=== PATIENT | female | born 1995 | race Caucasian/White ===

== ENCOUNTER 2021-04-08 08:16 | Emergency (ER) | payer BC, SELFPAY ==
[2021-04-08] VITALS (15 sets, daily range): BP systolic 99–121; BP diastolic 54–75; PULSE 63–81; RESP 8–18; TEMP 36.9; O2SAT 90–100
--- NOTE | ~2021-04-08 | XR_ITS ---
EXAMINATION: XR chest 2V DATE: 04/08/2021 09:09 INDICATION: Blurry vision and dizziness TECHNIQUE: PA and lateral views of the chest are obtained. COMPARISON: None available FINDINGS: The lungs are free of acute opacities. There is no pleural effusion or pneumothorax. The ca rdiomediastinal silhouette is normal. The visualized bones and soft tissues are unremarkable. IMPRESSION: 1. No acute cardiopulmonary abnormality. Reviewed, dictated and finalized at location B. ERY CASHIER
--- NOTE | 2021-04-08 08:36 | ECG_ITS ---
Measurements Intervals [place] Rate: 73 P: 14 AK: 112 QRS: 75 QRSD: 85 T: 15 QT: 389 QTc: 430 Interpretive Statements SINUS RHYTHM WITH SHORT AK INTERVAL BORDERLINE ECG Electronically Signed On 04-08-2021 9:05:38 [employer] by Fam Lockhart D.O.
[2021-04-08] MEDS: ONDANSETRON INJ 4 MG/2 ML VIAL IV PUSH (09:02)
[2021-04-08] MEDS: LACTATED RINGERS 1,000 ML 999 ML IV CONT (09:04)
[2021-04-08 09:05] LABS: Alanine Aminotransferase 46 U/L (4-35); Albumin Level 4.8 g/dL (3.5-5.1); Alkaline Phosphatase 55 U/L (38-126); Anion Gap 9 mmol/L (8-16); Aspartate Amino Transferase 28 U/L (14-36); Bilirubin,Total 0.6 mg/dL (0.2-1.3); Blood Urea Nitrogen 11 mg/dL (7-17); Calcium 9.8 mg/dL (8.4-10.2); Carbon Dioxide 26 mmol/L (22-30); Chloride 105 mmol/L (98-107); Estimated CRCL calculation 100 ml/min; Estimated Glomerular Filt Rate > 60; Glucose 115 mg/dL (65-110); Lipase 129 U/L (23-300); Potassium 3.5 mmol/L (3.4-5.0); Sodium 140 mmol/L (137-145)
[2021-04-08 09:08] LABS: Basophils Absolute Auto 0.1 K/mm3 (0.0-0.1); Basophils Percent Auto 1.1 % (0.2-1.2); Eosinophils Absolute Auto 0.1 K/mm3 (0-0.3); Eosinophils Percent Auto 2.5 % (0-4.4); Hematocrit 41.6 % (37.0-47.0); Hemoglobin 13.5 g/dL (12.0-15.0); Immature Granulocyte Absolute 0.02 K/mm3 (0.00-0.031); Immature Granulocyte Percent A 0.4 % (0-0.5); Lymphocytes Percent Auto 28.6 % (18.3-44.2); Mean Corpuscular HGB Conc 32.5 g/dl (32-36); Mean Corpuscular Hemoglobin 30.4 pg (26-34); Mean Corpuscular Volume 93.7 fl (80-100); Mean Platelet Volume 10.7 fl (7.4-10.4); Monocytes Absolute Auto 0.5 K/mm3 (0.1-0.6); Neutrophils Absolute Auto 3.1 K/mm3 (1.3-6.7); Neutrophils Percent Auto 58.4 % (45.5-73.1); Platelet Count Result 257 k/mm3 (150-375); Red Blood Count 4.44 M/mm3 (4.2-5.4); Red Cell Distribution Width 12.3 % (11.5-14.5); White Blood Count 5.3 K/mm3 (4.5-10.0)
[2021-04-08 09:11] LABS: D Dimer 0.33 ug/mL (<0.48)
--- NOTE | 2021-04-08 09:14 | ED.DIZZY ---
HPI - Dizziness General Chief Complaint: Syncope Stated Complaint: NEAR SYNCOPAL EVENT Time Seen by Provider: 04/08/21 08:28 Source: patient and RN notes reviewed Mode of arrival: wheelchair Limitations: no limitations History of Present Illness HPI Narrative: This is a 25 year old female with history of tachycardia and mitral valve prolapse who presents for evaluation of dizziness. Patient reports this morning she was standing in clinicals when she became lightheaded, flushed and nauseous. She sat down and she was given some crackers and juice. She felt better so she continued her clinicals. She reports having another episode while she was standing around for a c section. Her vision went blurred , became nauseous and became lightheaded again. She denies associated chest pain, shortness of breath. She states she also woke up this morning feeling nauseated with abdominal discomfort. She had not eaten breakfast this morning. She reports history of near syncopal episodes, and she was told it was due to mitral valve prolapse. She was started on metoprolol 1-2 weeks for tachycardia and mitral valve prolapse. She is still waiting on cardiac evaluation. She is currently taking metoprolol 25 mg daily. Related Data Allergies Allergy/AdvReac Type Severity Reaction Status Date / Time lidocaine Allergy Unknown Verified 04/08/21 09:01 Review of Systems Review of Systems: All systems reviewed & are unremarkable except as noted in HPI and below Constitutional: Constitutional: Denies chills, Denies fatigue and Denies fever(s) Cardiovascular: Cardiovascular: Denies chest pain Respiratory: Respiratory: Denies cough and Denies dyspnea Gastrointestinal: Gastrointestinal: Reports abdominal pain, Denies diarrhea, Reports nausea and Denies vomiting Neurologic: Denies headache(s), Denies focal weakness and Denies numbness PMFSH Past Medical History Medical History (Updated 04/08/21 @ 16:50 by Ivis Finley MD) Mitral valve prolapse Tachycardia Surgical History Surgical History (Updated 04/08/21 @ 16:51 by Ivis Finley MD) No pertinent past surgical history Social History Social History (Updated 04/08/21 @ 16:51 by Ivis Finley MD) Smoking status: Never smoker Alcohol intake: never Substance use: never Exam Narrative: GENERAL: Well-appearing, well-nourished, and in no acute distress. HEAD: Normocephalic, atraumatic EYES: PERRLA and EOMI, conjunctiva clear without discharge EARS: TM's clear bilaterally without erythema or dullness NOSE: Nares clear, no rhinorrhea or epistaxis THROAT:Mucous membranes moist, Oropharynx normal without erythema, exudate, peritonsillar swelling or fluctuance NECK: Supple, without lymphadenopathy or mass RESPIRATORY: No respiratory distress, Airway patent, Respirations non-labored, Clear to auscultation without rales, rhonchi or wheeze HEART: Regular rate and rhythm. No murmur heard. Normal peripheral pulses. ABDOMEN: Soft, nontender, nondistended, normal active bowel sounds. No masses. No rebound or guarding, No organomegaly. EXTREMITIES: No edema, normal strength with full range of motion. SKIN: Warm, dry, normal color without rash NEURO: Alert and oriented x3. CN 2-12 grossly intact. No focal deficits. PSYCH: Normal mood and affect. Course Reevaluation(s) Reevaluation #1: PAtient was given IVF. She has been able to ambulate with steady gait. She denies any complaints. Currently. I discussed evaluation has been unremarkable in ER other than a UTI. She has follow up appointment with PCP when she leaves today to discuss if she should continue metoprolol or change dose. Date: 04/08/21 Time: 11:26 Vital Signs Vital signs: Vital Signs Respiratory Rate 14 04/08/21 08:29 Pulse Oximetry 90 04/08/21 08:29 Temperature 98.4 F 04/08/21 09:30 Pulse Rate 75 04/08/21 11:44 Respiratory Rate 18 04/08/21 11:44 Blood Pressure 109/63 04/08/21
[2021-04-08 09:41] LABS: Add Urine Microscopic? YES; Appearance Urine Cloudy (Clear); Bacteria Urine Trace /hpf; Bilirubin Urine 1+ (Negative); Blood Urine Negative (Negative); Color Urine Amber (Yellow); Glucose Urine UA Negative (Negative); Ketones Urine Negative (Negative); Leukocyte Esterase Ur 2+ LEU/UL (Negative); Mucus Urine Heavy /lpf; Nitrate Urine Negative (Negative); Protein Urine 2+ mg/dL (Negative); Squamous Epithelial Cell Urine Moderate /hpf (Few); WBC Urine 31-50 /hpf
[2021-04-08 09:44] LABS: Specific Grav Ur 1.031 (1.001-1.035)
== END 2021-04-08 11:50 | disposition home or self-care (01) ==
PROVIDERS: Emergency Provider General Practice; PCP Family Medicine
DX: R55 Syncope and collapse (principal); N39.0 Urinary tract infection, site not specified; I08.9 Rheumatic multiple valve disease, unspecified; R94.31 Abnormal electrocardiogram [ECG] [EKG]
CPT/HCPCS: 36415; 71046; 80053; 81001; 81025; 83690; 85025; 85380; 87086; 93005; 96361; 96374; 99284; J2405; J7120